=== PATIENT | male | born 1970 | race Caucasian/White ===

== ENCOUNTER → 2016-08-21 | Outpatient (CLI) | payer BC ==
[~2016-08-21] MED LIST: ACET-1138 PO; ACET-1311 PO; CLB200 PO; DOCU100C31 PO; ONDA8TAB13 SL; ONDA8TAB6 PO; OXYC1TAB3 PO; OXYC20TA50 PO; OXYSR10 PO; PERFLUTREN LIPID MICROSPHERE (DEFINITY) IV ONE; RIVA1TAB4 PO; RXC5 PO; XRL10 PO
--- NOTE | 2016-08-21 17:11 | ECHOCARDIOGRAM REPORT ---
*NOTICE TO RECEIVING DEMOCRAT AGENCY This information is strictly Confidential and protected under [place] law. [place] law prohibits you from making any further disclosure of this information unless further disclosure is expressly permitted by the written consent of the person to whom it pertains or is authorized by law. A general authorization for the release of medical or other information is not sufficient for this purpose. Hospital accepts no responsibility if the information is made available to any other person, INCLUDING THE PATIENT. Interpretation Summary * Name: ROGERIO MCKEON Study Date: 08/21/2016 12:39 PM BP: 165/79 mmHg * Patient Location: [facility] HR: 80 * : 1970 (M/d/yyyy) Gender: Male Height: 76 in * Age: 46 yrs Ethnicity: [place] Weight: 322 lb * Ordering Physician: Tristan Isidro * Referring Physician: Tristan Isidro * Performed By: Maty Swartz RDCS * * Reason For Study: MURMURS * BSA: 2.7 m2 * -- Conclusions -- * 1. Normal LV size. Mild concentric LVH. * 2. Normal LV systolic function. LVEF 55-60%. No regional wall motion abnormalities. * 3. Normal RV size and function. * 4. No significant valvular pathology. * 5. Grade II diastolic dysfunction. * 6. No prior studies for comparison. Procedure Details * A contrast injection of Definity was performed to improve assessment of LV function. * Contrast was injected into an intravenous site in the right arm. * One vial of Definity ultrasound contrast was diluted in normal saline to a total volume of 10 ml. A total of '2' ml of solution was administered during imaging. * Lot # [id number] of Definity utilized for procedure. * Expiration date 1 JUN 24. * The attending nurse who injected the contrast agent was PHANI FERNANDES RN. Left Ventricle * The left ventricle is grossly normal size. * There is mild concentric left ventricular hypertrophy. * Ejection Fraction = 55-60%. * No regional wall motion abnormalities noted. Right Ventricle * The right ventricle is grossly normal size. * The right ventricular systolic function is normal as assessed by tricuspid annular plane systolic excursion (TAPSE) (normal >1.5 cm). Atria * The left atrium is mildly dilated. * Right atrial size is normal. * No ASD detected; PFO is not assessed. Mitral Valve * The mitral valve is grossly normal. * There is no mitral valve stenosis. * Significant mitral regurgitation is absent. Tricuspid Valve * The tricuspid valve is not well visualized, but is grossly normal. * There is no tricuspid stenosis. * Significant tricuspid regurgitation is absent. Aortic Valve * The aortic valve opens well. * The aortic valve is trileaflet. * No hemodynamically significant valvular aortic stenosis. * There is no significant aortic regurgitation. Pulmonic Valve * The pulmonary valve is not well seen, but the Doppler examination is normal without significant regurgitation or stenosis. * There is mild valvular pulmonic stenosis. * There is no significant pulmonary regurgitation. Great Vessels * The aortic root and proximal ascending aorta are normal sized. * No Doppler or imaging evidence of an aortic coarctation. Pericardium/Pleural * There is no pericardial effusion. Left Ventricular Diastolic Function * Diastolic dysfunction, Grade II (pseudonormalization pattern). MMode 2D Measurements and Calculations IVSd 1.3 cm IVSs 1.7 cm LVIDd 4.6 cm LVIDs 3.2 cm LVPWd 1.6 cm LVPWs 2.1 cm IVS/LVPW 0.79 FS 31.2 % EDV(Teich) 98.9 ml ESV(Teich) 40.5 ml EF(Teich) 59.0 % EDV(cubed) 99.3 ml ESV(cubed) 32.3 ml EF(cubed) 67.5 % % IVS thick 34.0 % % LVPW thick 31.6 % LV mass(C)d 270.9 grams LV mass(C)dI 99.9 grams/m\S\2 LV mass(C)s 260.3 grams LV mass(C)sI 96.0 grams/m\S\2 SV(Teich) 58.4 ml SI(Teich) 21.5 ml/m\S\2 SV(cubed) 67.0 ml SI(cubed) 24.7 ml/m\S\2 LVAd ap4 49.3 cm\S\2 LVLd ap4 9.9 cm EDV(MOD-sp4) 200.8 ml EDV(sp4-el) 208.7 ml LVAs ap4 29.5 cm\S\2 LVLs ap4 8.0 cm ESV(MOD-sp4) 91.1 ml ESV(sp4-el) 92.2 ml EF(MOD-sp4) 54.7 % EF(sp4-el) 55.8 % LVAd ap2 39.3 cm\S\2 LVLd ap2 9.4 cm EDV(MOD-sp2) 138.6 ml EDV(sp2-el) 138.5 ml LVAs ap2 22.2 cm\S\2 LVLs ap2 7.2 cm ESV(MOD-sp2) 57.3 ml ESV(sp2-el) 58.1 ml EF(MOD-sp2) 58.6 % EF(sp2-el) 58.1 % LVLd %diff -4.47 % EDV(MOD-bp) 167.5 ml LVLs %diff -11.50 % ESV(MOD-bp) 76.0 ml EF(MOD-bp) 54.7 % SV(MOD-sp4) 109.8 ml SI(MOD-sp4) 40.5 ml/m\S\2 SV(MOD-sp2) 81.2 ml SI(MOD-sp2) 29.9 ml/m\S\2 SV(MOD-bp) 91.6 ml SI(MOD-bp) 33.8 ml/m\S\2 SV(sp4-el) 116.5 ml SI(sp4-el) 42.9 ml/m\S\2 SV(sp2-el) 80.4 ml SI(sp2-el) 29.6 ml/m\S\2 Doppler Measurements and Calculations MV E max juan jose 92.4 cm/sec MV A max juan jose 79.8 cm/sec MV E/A 1.2 MV dec time 0.25 sec Ao V2 max 142.3 cm/sec Ao max PG 8.1 mmHg Ao max PG (full) 0.95 mmHg LV V1 max PG 7.2 mmHg LV V1 max 133.7 cm/sec
== END | disposition home or self-care (01) ==
LOC: C.CPL 12:25
PROVIDERS: ATTEND Internal Medicine
DX: R01.1 Cardiac murmur, unspecified (principal)

== ENCOUNTER 2016-09-06 11:15 | Inpatient (IN) | payer BC ==
[2016-08-11 15:28] VITALS: BMI 39.0
--- NOTE | 2016-08-11 15:57 | PAT Medication Instructions ---
Service Date Aug 11, 2016. Current Home Medication List No Active Prescriptions or Reported Meds Medication Instructions For Your Scheduled Surgery No Active Prescriptions or Reported Meds- Patient advised to contact PAT if any medications started prior to surgery. If you have any questions please call us at [phone] (Ryann Alvarado PA-C) or [phone] or [phone]
[2016-08-11 16:17] LABS: MANUAL MICROSCOPIC REQUIRED? NO; REVIEW REQ? NO; URINE APPEARANCE CLEAR (CLEAR); URINE BILIRUBIN NEG (NEG); URINE COLOR YELLOW; URINE NITRITE NEG (NEG); URINE SPECIFIC GRAVITY 1.029 (1.000-1.030); UROBILINOGEN NEG (NEG); ZZUR CULT IF INDIC CLEAN CATCH NO
[2016-08-11 16:18] LABS: BASO % 0.4 %; BASO ABS # 0.03 K/uL (0-0.2); COMPLETE YES; EOS % 1.6 %; HEMATOCRIT 42.2 % (42-52); IG% 0.2 %; LYMPH % 28.5 %; MEAN CELL VOLUME 86.5 fL (80-100); MEAN CORPUSCULAR HEMOGLOBIN 29.9 pg (25-34); MEAN CORPUSCULAR HGB CONC 34.6 g/dl (32-36); MEAN PLATELET VOLUME 10.3 fL (7.4-10.4); MONO % 9.3 %; PLATELET COUNT 238 K/uL (130-400); RED BLOOD COUNT 4.88 M/uL (4.7-6.1); WHITE BLOOD COUNT 8.08 K/uL (4.8-10.8)
[2016-08-11 16:24] LABS: BUN/CREATININE RATIO 16.9 (10-20); CALCIUM 8.5 mg/dl (8.5-10.1); CREATININE 1.4 mg/dl (0.60-1.40); POTASSIUM 3.8 mmol/L (3.5-5.1)
[2016-08-11 16:26] LABS: INR 0.9 (0.9-1.1); PROTHROMBIN TIME (PATIENT) 9.9 SECONDS (9.0-12.0)
--- NOTE | 2016-08-11 16:29 | DIAGNOSTIC IMAGING REPORT ---
CHEST 2 VIEWS ROUTINE CLINICAL HISTORY: Preoperative chest COMPARISON STUDY: No previous studies for comparison. FINDINGS: The cardiac and mediastinal contours are normal. There is no evidence of focal pulmonary consolidation. There is no evidence of failure. No pleural effusions are visualized.[ IMPRESSION: No active disease in the chest. Electronically signed by: Alex Stevens M.D. 08/11/2016 4:26 PM Dictated Date/Time: 08/11/2016 4:26 PM
[2016-08-12 06:09] LABS: ESTIMATED AVERAGE GLUCOSE 111 mg/dl; HA1C FLAG Normal (Normal)
--- NOTE | 2016-09-05 16:45 | HISTORY & PHYSICAL EXAMINATION ---
DATE OF ADMISSION: 09/06/2016 CHIEF COMPLAINT: Chronic right knee pain. HISTORY OF PRESENT ILLNESS: This is a 46-year-old male patient of Dr. Lopez'thong complaining of chronic right knee pain, longstanding, now progressively getting worse. The patient has been diagnosed with end-stage osteoarthritis per clinical and radiographic exams. He has failed intraarticular injections and wishes to proceed with right total knee arthroplasty with removal of hardware. PAST MEDICAL HISTORY: Osteoarthritis and acid reflux, otherwise patient is a healthy 46-year-old male. SOCIAL HISTORY: Nonsmoker, occasional drinker. PAST SURGICAL HISTORY: Hernia repair, left shoulder surgery and right knee ACL reconstruction. MEDICATIONS: None. ALLERGIES: None. FAMILY HISTORY: Noncontributory. REVIEW OF SYSTEMS: The patient complains of chronic right knee pain, otherwise denies any shortness of breath, chest pain, nausea, vomiting or any other complaints. PHYSICAL EXAMINATION: EXTREMITIES: Right knee reveals 0-115 degrees of limited range of motion. He has a positive effusion. He has a neutral alignment. He has 5/5 strength. NEUROLOGIC: Neurovascularly, he is intact in his right lower extremity. DIAGNOSES: Right knee chronic pain with osteoarthritis and acid reflux. Otherwise, a healthy 46-year-old male. PLAN: The patient was advised of his diagnosis. Indications, risks, benefits, and postop course have all been reviewed. The patient wishes to proceed with right total knee arthroplasty with removal of hardware. Necessary consent forms, preoperative testing and clearances will be obtained.
[~2016-09-06] VITALS: Ht 193 cm; Wt 146.3 kg
[~2016-09-06 11:15] MED LIST changes: -ACET-1138 PO; -ACET-1311 PO; +ACETAMINOPHEN 500 MG TAB PO SCH; +ATROPINE SULFATE 0.1 MG/ML 5ML SYR IV PRN; +BACITRACIN 50000 UNIT VIAL ONE; +BUPIVACAINE 0.5 % 5 MG/1 ML PF 10ML VIAL ONE; +CEFAZOLIN 3000 MG/65 ML D5W 65 ML IV SCH; -CLB200 PO; +CeleBREX 200 MG CAP PO SCH; +DEXAMETHASONE 4 MG TAB PO SCH; -DOCU100C31 PO; +EpHEDrine SULFATE INJ 50 MG/ML AMP IV PRN; +FAMOTIDINE 20 MG TAB PO SCH; +GABAPENTIN 300 MG CAP PO SCH; +HYDROmorphone INJ 2 MG/ML SYR/VIAL IV PRN; +LACTATED RINGER'S 1000ML 1,000 ML IV SCH; +METOCLOPRAMIDE HCL 10 MG TAB PO SCH; -ONDA8TAB13 SL; -ONDA8TAB6 PO; +ONDANSETRON INJ 2 MG/ML 2 ML VIAL IV PRN; +ORTHO JOINT ANESTHETIC ONE; -OXYC1TAB3 PO; -OXYC20TA50 PO; -OXYSR10 PO; -PERFLUTREN LIPID MICROSPHERE (DEFINITY) IV ONE; +PHENYLEPHRINE 100MCG/ML 5ML SYR IV PRN; -RIVA1TAB4 PO; +ROPIVACAINE 0.5% 5 MG/ML 30 ML VIAL ONE; +ROPIVACAINE 5MG/ML 30 ML 150 MG, BUPIVACAINE/EPINEPHR 0.5% MPF 30 ML, KETOROLAC TROMETH... INFIL SCH; -RXC5 PO; -XRL10 PO
[2016-09-06] MEDS ORDERED: MIDAZOLAM HCL 1 MG/ML 2ML VIAL ONE ×3 (11:26→14:08)
[2016-09-06] MEDS ORDERED: FENTANYL CITRATE INJ 50 MCG/1 ML 2 ML VIAL ONE ×2 (11:27→14:08)
[2016-09-06 11:32] VITALS: BP 137/91; PULSE 70; TEMP 36.4; O2SAT 97; Ht 193 cm; Wt 146.3 kg
--- NOTE | 2016-09-06 12:08 | History & Physical Bridge Note ---
H&P Re-Evaluation Bridge Note: I have examined the patient, reviewed the History & Physical and in the interval since the performance of the History & Physical I have noted the following changes of clinical significance: No changes noted
[2016-09-06] MEDS ORDERED: POVIDONE-IODINE OP SOLN 30 ML BTL ONE (12:12)
[2016-09-06] MEDS: TRANEXAMIC ACID INJ 1,000 MG in SODIUM CHLORIDE 0.9% 100ML 100 ML IV SCH (12:14)
[2016-09-06] MEDS ORDERED: LIDOCAINE HCL 2% 2 ML VIAL (20MG/ML) ONE (12:19)
[2016-09-06] MEDS ORDERED: KETAMINE HCL INJ 50 MG/ML 10 ML VIAL ONE (12:56)
[2016-09-06] MEDS ORDERED: ONDANSETRON INJ 2 MG/ML 2 ML VIAL ONE (16:01)
[2016-09-06] MEDS ORDERED: DEXAMETHASONE SOD INJ 4 MG/ML VIAL ONE (16:01)
[2016-09-06] MEDS ORDERED: PROPOFOL IV EMULSION 10 MG/ML 20 ML VIAL IV ONE ×2 (16:01)
[2016-09-06] MEDS ORDERED: TRAMADOL HCL 50 MG TAB PO PRN (16:15)
[2016-09-06] MEDS ORDERED: BISACODYL 10 MG SUPP PR PRN (16:15)
[2016-09-06] MEDS ORDERED: ONDANSETRON INJ 2 MG/ML 2 ML VIAL IV PRN (16:15)
[2016-09-06] MEDS ORDERED: MAGNESIUM HYDROXIDE SUSP 30 ML UDC PO PRN (16:15)
[2016-09-06] MEDS ORDERED: MoRPHine SULFATE 2 MG/ML CARP IV PRN (16:15)
[2016-09-06] MEDS ORDERED: SOD PHOSPHATE/SOD BIPHOSPHATE ENEMA 132 ML BTL PR PRN (16:15)
--- NOTE | 2016-09-06 16:28 | DIAGNOSTIC IMAGING REPORT ---
TWO VIEWS RIGHT KNEE CLINICAL HISTORY: Postoperative examination. FINDINGS: AP and crosstable lateral portable views of the right knee are obtained. A right knee arthroplasty is in near anatomic alignment. There has been undersurface remodeling of the patella. No acute fracture is seen. There are expected postoperative changes around the knee including skin clips, a surgical drain, soft tissue edema, and subcutaneous gas. IMPRESSION: Expected postoperative changes status post right knee arthroplasty. No acute fracture is seen. Electronically signed by: Suraj Ward M.D. 09/06/2016 4:26 PM Dictated Date/Time: 09/06/2016 4:26 PM
--- NOTE | 2016-09-06 16:35 | [facility] Operative Report ---
Operative Report Operative Date September 06, 2016. Pre-Operative Diagnosis Right chronic knee pain with osteoarthritis,s/p acl recon retained hardware. Post-Operative Diagnosis end stage djd oa ,failed acl graft ,postop scar tissue. Procedure(s) Performed right TKA and hardware removal Surgeon Dr. Lopez Script Coordinator Surgeon(s) IKE Orozco Estimated Blood Loss 30ml Findings tricompartmental djd , chronic scar ,s/p partial medial meniscectomy and failed acl graft Specimens A) Removed Hardware- right knee B) Right knee- bone and tissue Drains 2 hemovac Anesthesia spinal and general and adductor block and orthomix Complication(s) None Disposition Recovery Room / PACU Indications failed conservative rx with end stage djd and progressive pain and disability I attest to the content of the Intraoperative Record and any orders documented therein. Any exceptions are noted below.
[2016-09-06] MEDS ORDERED: HYDROmorphone INJ 1 MG/ML SYR ONE ×2 (16:36→16:50)
--- NOTE | 2016-09-06 16:59 | Anesthesiology Progress Note ---
Anesthesia Post Op Note Date & Time September 06, 2016 at 16:58 Vital Signs Pain Intensity: 4.0 Vital Signs Past 12 Hours Date Time Temp Pulse Resp B/P Pulse Ox O2 Delivery O2 Flow Rate FiO2 09/06/16 16:50 82 14 130/87 95 Nasal Cannula 2 09/06/16 16:40 82 16 135/88 96 Nasal Cannula 2 09/06/16 16:30 89 16 143/98 98 Mask 10 09/06/16 16:20 92 16 137/120 98 Mask 10 09/06/16 16:10 36 99 16 156/100 100 Mask 10 09/06/16 11:32 36.4 70 20 137/91 97 Room Air Notes Mental Status: alert / awake / arousable, participated in evaluation Pt Amnestic to Procedure: Yes Nausea / Vomiting: adequately controlled Pain: adequately controlled Airway Patency, RR, SpO2: stable & adequate BP & HR: stable & adequate Hydration State: stable & adequate Neuraxial Anesthesia: was administered, sensory block is resolving Anesthetic Complications: no major complications apparent Pt doing well, just having some lower back pain which he says is like his typical low back pain. His spinal site appears benign and he has no radicular symptoms. We did have to convert to GA during the case as the spinal lost effectiveness after only about an hour and a half.
[2016-09-06 17:20] VITALS: BP 131/84; PULSE 86; TEMP 36.4; O2SAT 97
[2016-09-06 17:46] VITALS: BP 121/74; PULSE 80; TEMP 36; O2SAT 96
[2016-09-06] MEDS: D5W AND 1/2NSS + 20MEQ KCL 1,000 ML IV SCH (18:38)
[2016-09-06] MEDS: OXYCODONE HCL IR 5 MG TAB (IMMEDIATE RELEASE) PO PRN (18:44)
[2016-09-06 19:20] VITALS: BP 122/76; PULSE 72; TEMP 36.7; O2SAT 97
[2016-09-06] MEDS: CEFAZOLIN IV 2,000 MG in DEXTROSE 5% 50ML 50 ML IV SCH (19:50)
[2016-09-06 20:18] VITALS: BP 132/72; PULSE 78; TEMP 36.7; O2SAT 96
--- NOTE | 2016-09-06 20:31 | Progress Note ---
Subjective Date of Service: September 06, 2016. Subjective Pt evaluation today including: conversation w/ patient, conversation w/ family , physical exam, chart review, lab review asked to see for med management. notes that his medical problems are the OA in knee (which has now been operated on) and GERD (which really only occurs when he eats red sauce) pain reasonable control right now - wanted to make sure he has something for pain before he goes to bed - reviewed chart and mutliple meds would be available Review of Systems ros otherwise negative except for as above Objective Vital Signs Date Time Temp Pulse Resp B/P Pulse Ox O2 Delivery O2 Flow Rate FiO2 09/06/16 20:18 36.7 78 17 132/72 96 Nasal Cannula 2.0 09/06/16 19:20 36.7 72 17 122/76 97 Nasal Cannula 2.0 09/06/16 17:46 36.0 80 17 121/74 96 Nasal Cannula 2.0 09/06/16 17:20 36.4 86 18 131/84 97 Nasal Cannula 2.0 09/06/16 17:00 36 82 16 130/92 92 Nasal Cannula 2 09/06/16 16:50 82 14 130/87 95 Nasal Cannula 2 09/06/16 16:40 82 16 135/88 96 Nasal Cannula 2 09/06/16 16:30 89 16 143/98 98 Mask 10 09/06/16 16:20 92 16 137/120 98 Mask 10 09/06/16 16:10 36 99 16 156/100 100 Mask 10 09/06/16 11:32 36.4 70 20 137/91 97 Room Air Physical Exam General Appearance: no apparent distress Eyes: EOMI ENT: hearing grossly normal Respiratory/Chest: no respiratory distress, no accessory muscle use 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 GERD -avoid red sauce elevated creatinine -appears around baseline - doubt any CKD - appears to have a lot of muscle mass encompassing a good deal of his weight - probably "normal variant" DVT proph -per ortho will be available as needed, but given overall medical stability, will sign off for now, thanks
[2016-09-06] MEDS: CeleBREX 200 MG CAP PO SCH (21:08)
[2016-09-06] MEDS: DOCUSATE SODIUM 100 MG CAP PO SCH (21:08)
[2016-09-06] MEDS: OXYCODONE HCL 10 MG TABCR (OXYCONTIN) PO SCH (21:08)
[2016-09-06] MEDS: MoRPHine SULFATE 2 MG/ML CARP IV PRN (22:42)
[2016-09-06] MEDS: ACETAMINOPHEN 500 MG TAB PO SCH (23:16)
[2016-09-06] MEDS: RIVAROXABAN 10 MG TAB PO SCH (23:16)
[2016-09-06 23:53] VITALS: BP 119/68; PULSE 82; TEMP 36.5; O2SAT 95
[2016-09-07] VITALS (7 sets, daily range): BP systolic 114–144; BP diastolic 68–91; PULSE 67–88; TEMP 36.5–37.1; O2SAT 95–96
[2016-09-07] MEDS: OXYCODONE HCL IR 5 MG TAB (IMMEDIATE RELEASE) PO PRN ×2 (00:23→12:16)
[2016-09-07] MEDS: ZOLPIDEM TARTRATE 5 MG TAB PO PRN ×2 (00:23→02:40)
[2016-09-07] MEDS: CEFAZOLIN IV 2,000 MG in DEXTROSE 5% 50ML 50 ML IV SCH (02:42)
[2016-09-07] MEDS: D5W AND 1/2NSS + 20MEQ KCL 1,000 ML IV SCH ×2 (02:42→13:34)
--- NOTE | 2016-09-07 03:29 | OPERATIVE REPORT ---
DATE OF OPERATION: 09/06/2016 INDICATIONS FOR PROCEDURE: A 46-year-old male with history of a right knee ACL reconstruction in the past. He has developed osteoarthritis. He has had extensive conservative management. He has tricompartmental DJD, [id number] in the medial compartment. The patient now presents for a total knee replacement at this time and hardware removal. PREOPERATIVE DIAGNOSES: Right knee end-stage osteoarthritis, history of previous anterior cruciate ligament reconstruction with bone patellar tendon bone autograft with retained hardware. POSTOPERATIVE DIAGNOSES: Same; chronic scar tissue status post anterior cruciate ligament reconstruction, findings partial medial meniscectomy, retained interference screw hardware in the tibia and femur. Failed anterior cruciate ligament graft and tricompartmental disease. PROCEDURE: Right total knee arthroplasty including removal of deep hardware from the femur and tibia. SURGEON: Dr. Lopez. MANUFACTURING PROCESS ENGINEER: IKE Orozco. ANESTHESIA: Spinal and adductor nerve block followed by general and ortho mix. OPERATIVE PROCEDURE: The patient was taken to the operating room after spinal and adductor nerve block anesthesia. He was placed supine on the operating room table. The patient is a very large male, BMI of 39 by the large muscular leg. Pneumatic tourniquet was placed about his upper thigh. His right leg was examined under anesthesia. He had a very stiff knee of 0 to about 120 degrees range of motion. No clear endpoint with Ambrocio exam but no pivot shift. Right lower extremity was prepped and draped with ChloraPrep in the usual sterile fashion. His leg was elevated and exsanguinated with Esmarch bandage. Pneumatic tourniquet was raised to 350 mmHg because of the large size of his thigh. I used the Adams \T\ Nephew Journey 2.0 total knee replacement system. I had to use conventional alignment rods and external tibial cutting guide because of the hardware and inability to get an MRI. The knee was exposed by using his pretibial incision from his ACL reconstruction, extending that up into a longitudinal incision across patella and up about 3 cm above the knee joint. The skin was incised sharply. We encountered scarred prepatellar bursa tissue which was incised down to the fascia and some of the prepatellar bursa was resected and subcutaneous flaps were elevated. It was noted that the patellar tendon had healed centrally where the graft was obtained, but there was indentation and bit of a divot in the tendon area where the graft was harvested. The incision was made through the medial retinaculum and extended up in the mid third of the quadriceps tendon and extended down to the medial tibial tubercle. It was noted that the patellar tendon was very thickened and scarred. It was difficult to jermaine the patella. It was difficult to get exposure of the knee due to the scar tissue. First, I did some of the capsular release of the medial capsule around the anterior medial part of the knee. I identified the medial meniscus to have had the previous partial meniscectomy with decreased size of meniscus. The meniscal remnants were resected medially and then anterior to the mid portion initially. We inspected the graft and the graft was completely ruptured and there was just some scar tissue from the graft there. There were some bony excrescences around the tibial tubercle. These were removed and the old graft material was resected. Some of the notch osteophytes were removed and the PCL was released at this time. The anterior portion of the lateral meniscus was removed and then we had to reflect some of the scarred inferior patellar fat pad off the pretibial area leaving the patellar tendon intact. We then went ahead and removed the fat pad over the anterior femur for placement of the component in that area and then removed some scarred fat and synovium around the patella articular surface and then we removed the scarred infrapatellar fat pad. This improved some of the mobility of the patella but did not improve it significantly and enough to get enough exposure of the femur without taking any proximal releases which I did not want to do so at this point, we addressed the patella first. I did a subperiosteal peel lateral release around the patella and then measured the patella width which was very thick patella over 30 mm thick at about 30-32 mm. We reproduced the width using a freehand cut technique and a 38 patellar component. The drill holes were made for the patella and all of the osteophytes removed in the lateral facet and the patella was bevelled off to prevent any impingement. At this time, we were able to get retractors to expose the femur better. At this point, an intramedullary drill hole was made into the canal, and we were able to bypass the interference screw without difficulty in this portion of the procedure. After the guide bhaskar was placed, we used the distal femoral cutting guide to align the distal femoral cut at a 5 degree valgus cut. Because patient had a flexion contracture about 10 degrees, I chose to add +2 resection of the distal femur to the standard cut. Then the cut was made with the oscillating saw. Then, the sizing guide and alignment guide was placed on the end of the femur and was pinned in position and we externally rotated the femoral component just over 3 degrees to line up with the inner condylar axis and also the trochlear groove. When the lateral most was satisfactory, it was pinned in position and then the femur was sized for an 8 component. We used the 5-in-1 cutting block for the 8th femoral component. The patient had very dense hard bone. I cool the saw with saline during this part of the procedure. The anterior, posterior and chamfer cuts were made. Then, the cutting block was removed and the cut fragments were removed and then the tibia was subluxed and external tibial cutting guide was used to make a perpendicular cut to the long axis of the tibia. I made this below the most efficient medial side. We also placed some posterior slope on to match the patient's posterior slope appropriately. We used the oscillating saw. We did contact the interference screw so we could worked around that screw, so we could get our complete cut with the oscillating saw. I removed the cutting device guide and then inspected the tip of the screw and this was removed by using an artist chisel to free up the bone around the screw which was densely adherent to the bone which had grown completely around the screw solidly. I removed some of the graft material near the tunnel and then we were able to break the screw lose and remove it in its entirety. I curetted out the remainder of the graft in the proximal tibia. I removed all the osteophytes with a rongeur. Then we sized the tibia for a size 8 tibial component. Did released the capsule medially and posteromedially to balance the ligaments. We used the lamina egg packer and we were able to remove any meniscus remnants remaining in the PCL completely and remainder of the ACL graft. He had a very large loose body, which was in the posteromedial compartment and this was at least 4 cm x 2 cm. I removed osteophytes off the condyles posteriorly bilaterally and all notch osteophytes. The lamina egg packer revealed that we had balanced extension and flexion gaps at this time. Then the tibia was exposed again. We externally rotated the trial 8 tibial component to line up with the tibial tubercle, pinned it in position, and first we drilled the hole for the punch because of the sclerotic bone tunnel that passed through that area and then we went ahead and used the punch for the pins of the tibial component. Then I went ahead and placed on the femoral trial, insert it completely and centered it and then when I was using the notch cutting devices, we made contact with the screw and we could not bottom out the reamer, so we had to ream partially first and then go ahead and remove the screw, so we went ahead and removed the notch cutting device from the notch and then went ahead and used an artist chisel around that screw. We tried to use a screwdriver when we started to strip the threads so we just went ahead and loosen it up on an artist chisel and then removed it with needle nose pliers. This was irrigated and then we used some of the bone cuts up in the femur to bone graft the area where the screw was and the alignment bhaskar in the femur. Then we replaced it and did a trial reduction and a 9 poly insert gave balanced ligaments through full range of motion and the patella still had slight lateral tracking and then we released the lateral retinaculum leaving the synovium intact and the patella tracked centrally and the knee had full motion and stability in flexion and extension. At this point, the trials were removed and the knee was copiously irrigated with antibiotic solution with bacitracin. The tourniquet was at 2 hours at this point, and I felt it was best to cement the components and at this point rather than leaving the knee bleed more with leaving the tourniquet down with all the raw bony surfaces so we went ahead and put a tourniquet up another 10 minutes while the components were cemented. The final components were then cemented with the Simplex G cement. The components were the Adams \T\ Nephew Journey 2.0 posterior stabilized 8th femoral component, the 8th primary tibial base plate, the 9 mm posterior stabilized Iplex poly insert and the 38 patella. While the cement cured, the Betadine soak was used per protocol and then when the cement hardened, we let the tourniquet down, irrigated out the knee copiously and obtained meticulous hemostasis with electrocautery and there was no whole lot of bleeding. We did have TXA for closing and preop which assisted in decreased bleeding. At this time, the 2 drains were brought out laterally and then the quadriceps tendon and medial retinaculum were closed with interrupted [id number] #1 Vicryl sutures. The knee was taken through a full range of motion and repair was secure. The subcutaneous tissue was closed with interrupted 2-0 Vicryl, skin closed with roya. Sterile dressings were applied including a Silverlon dressing. The patient had about 30 mL of blood loss. He tolerated the procedure well. IKE Orozco was my first and he functioned as my first beater for the entire procedure. He assisted in patient positioning, prepping, draping, leg positioning, soft tissue retraction, instrument management during the procedure and assisted in the subcutaneous skin closure and will participate in postoperative care of the patient. I attest to the content of the Intraoperative Record and any orders documented therein. Any exceptions are noted below. FEDE
[2016-09-07] MEDS: ACETAMINOPHEN 500 MG TAB PO SCH ×3 (05:47→21:18)
[2016-09-07 06:35] LABS: HEMATOCRIT 37.7 % (42-52); MEAN CELL VOLUME 87.5 fL (80-100); MEAN CORPUSCULAR HEMOGLOBIN 29.5 pg (25-34); MEAN CORPUSCULAR HGB CONC 33.7 g/dl (32-36); MEAN PLATELET VOLUME 10.6 fL (7.4-10.4); PLATELET COUNT 212 K/uL (130-400); RED BLOOD COUNT 4.31 M/uL (4.7-6.1); WHITE BLOOD COUNT 17.03 K/uL (4.8-10.8)
[2016-09-07] MEDS: TRANEXAMIC ACID INJ 1,000 MG in SODIUM CHLORIDE 0.9% 100ML 100 ML IV SCH (06:39)
[2016-09-07 07:09] LABS: BUN/CREATININE RATIO 10.4 (10-20); CALCIUM 8.4 mg/dl (8.5-10.1); CREATININE 1.6 mg/dl (0.60-1.40); POTASSIUM 4.7 mmol/L (3.5-5.1)
--- NOTE | 2016-09-07 08:12 | Orthopedic Progress Note ---
Orthopedic Progress Note Date of Service September 07, 2016. Subjective Post OP Day: 1 Reports: feeling well, pain controlled w PO medications, Denies: SOB, calf pain , chest pain, complaints, light headedness, nausea / vomiting Objective calves soft nontender, N/V intact, capillary refill less than 2 sec., dressing C /D/I, A&O x3, toes mobile Date Time Temp Pulse Resp B/P Pulse Ox O2 Delivery O2 Flow Rate FiO2 09/07/16 07:04 36.6 77 16 117/78 95 Room Air 09/07/16 02:50 36.5 74 18 121/73 95 Room Air 09/07/16 00:00 Room Air 09/06/16 23:53 36.5 82 20 119/68 95 Room Air 09/06/16 20:18 36.7 78 17 132/72 96 Nasal Cannula 2.0 09/06/16 19:20 36.7 72 17 122/76 97 Nasal Cannula 2.0 09/06/16 17:46 36.0 80 17 121/74 96 Nasal Cannula 2.0 09/06/16 17:20 97 Nasal Cannula 2.0 09/06/16 17:20 36.4 86 18 131/84 97 Nasal Cannula 2.0 09/06/16 17:20 97 Nasal Cannula 2.0 09/06/16 17:00 36 82 16 130/92 92 Nasal Cannula 2 09/06/16 16:50 82 14 130/87 95 Nasal Cannula 2 09/06/16 16:40 82 16 135/88 96 Nasal Cannula 2 09/06/16 16:30 89 16 143/98 98 Mask 10 09/06/16 16:20 92 16 137/120 98 Mask 10 09/06/16 16:10 36 99 16 156/100 100 Mask 10 09/06/16 11:32 36.4 70 20 137/91 97 Room Air Laboratory Results 24 Hours: Test 09/07/16 06:05 Hematocrit 37.7 % Hemoglobin 12.7 g/dL Assessment & Plan Assessment: POD #1, Right TKA Plan: PT/ OT DVT proph- Xarelto D/C planning- Home w OPPT Appreciate medicine input Inhouse Planning Pain Management: Celebrex, Oxycontin, Morphine, PO Tylenol, Oxy IR DVT Prophylaxis: TEDs, SCDs, Xarelto Discharge Planning Discharge Planning: home with oppt Pain Management: Oxycontin, Morphine, PO Tylenol, Oxy IR DVT Prophylaxis: TEDs, SCDs, Xarelto Therapy: Physical Therapy, Occupational Therapy
--- NOTE | 2016-09-07 08:13 | Discharge Instructions ---
Discharge Instructions Date of Service September 07, 2016. Admission Reason for Admission: Right Knee Dengerative Joint Disease Discharge Discharge Diagnosis / Problem: Right TKA Discharge Goals Goal(s): Improve function Activity Recommendations Activity Limitations: as noted below . Instructions / Follow-Up Instructions / Follow-Up ACTIVITY RECOMMENDATIONS: SELF CARE INSTRUCTIONS AFTER TOTAL KNEE REPLACEMENT A. You may need to continue a physical therapy program after discharge from the hospital. There are several options available to you. Your doctor will assist you in selecting the best one for you. 1. An out-patient facility 2 to 3 times a week for therapy or home therapy. 2. Continue working on all exercises taught to you in the hospital. Your goals should be to increase bending of your knee to 90 degrees and beyond and to fully straighten your knee. B. You may progress at your own pace from walking with a walker or crutches to a cane; then to no assistive devices. C. Make walking a part of your daily routine. Be up as much as comfortable with rest periods throughout the day. Rest with leg elevation is very important. Use the ice wrap frequently for the first 3-4 weeks. D. There are no restrictions on activities. 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 E. Wear the long elastic stockings (QUINN hose) 20 hours a day for 2 weeks after surgery. They can be removed several times a day for laundering and for a bath. F. You may shower, no tub baths until cleared by your doctor. SPECIAL CARE INSTRUCTIONS: VERY IMPORTANT TO READ AND REVIEW A. There are a few signs you need to watch for after you are home. Call [facility] if you notice any of the followin. Increased severe knee pain. Some pain is expected especially when you exercise. 2. Increased swelling in your leg or knee; pain or swelling of the calf muscle in either lower leg. 3. Any fluid drainage from the incision. 4. Shortness of breath or chest pain. B. Please call [facility] at if you have any concerns or questions about your operation or recovery. The doctor or his nurse will return your call promptly. C. You must take antibiotics before dental work, bladder, bowel or other surgery. Your doctor will provide you with a permanent care to carry describing this precaution. IMPORTANT: * HIGH RISK PATIENTS MAY BE PRESCRIBED A STRONGER BLOOD THINNER. THIS WILL BE PROVIDED AT DISCHARGE -XARELTO. * CALL IF INCREASED PAIN, REDNESS, DRAINAGE OR FEVER GREATER THAT 101. * WEAR QUINN HOSE 20 HOURS PER DAY FOR 2 WEEKS. * YOU MAY HAVE A LARGE BAND-AID LIKE DRESSING (SILVERON). THIS WILL REMAIN ON YOUR INCISION FOR 7 DAYS, THEN CAN BE REMOVED. IF INCISION IS LEAKING THROUGH DRESSING, CALL THE OFFICE . FOLLOW UP VISIT: If appointment is not already scheduled: Please call [facility] to make a follow-up appointment for 2 weeks after your surgery at . Current Hospital Diet Patient's current hospital diet: Regular Diet Discharge Diet Recommended Diet: Regular Diet Procedures Procedures Performed: Right Knee Hardware Removal (ACL Screws); Right Total Knee Arthroplasty Pending Studies Studies pending at discharge: no Laboratory Results Hemoglobin A1c Test 08/11/16 15:54 Range/Units Estimated Average Glucose 111 mg/dl Hemoglobin A1c 5.5 4.5-5.6 % Medical Emergencies . Who to Call and When: Medical Emergencies: If at any time you feel your situation is an emergency, please call 911 immediately. . Non-Emergent Contact Non-Emergency issues call your: Primary Care Provider . "Provider Documentation" section prepared by Bhavin Vallecillo. . VTE Core Measure Inpt VTE Proph given/why not?: Other Anticoagulation (Xarelto), TLa Nova, SCD's [place] Drug Monitoring Program Search Results: patient reviewed within database, no issues identified
[2016-09-07] MEDS: MULTIVITAMIN TAB PO SCH (08:58)
[2016-09-07] MEDS: OXYCODONE HCL 10 MG TABCR (OXYCONTIN) PO SCH ×2 (08:58→21:18)
[2016-09-07] MEDS: PANTOprazole SOD 40 MG TAB PO SCH (08:58)
[2016-09-07] MEDS: DOCUSATE SODIUM 100 MG CAP PO SCH ×2 (08:59→21:17)
[2016-09-07] MEDS: CeleBREX 200 MG CAP PO SCH ×2 (08:59→21:18)
--- NOTE | 2016-09-07 10:42 | Anesthesiology Progress Note ---
Anesthesia Post Op Note Date & Time September 07, 2016 at 10:42 Vital Signs Vital Signs Past 12 Hours Date Time Temp Pulse Resp B/P Pulse Ox O2 Delivery O2 Flow Rate FiO2 09/07/16 10:23 88 95 09/07/16 09:16 Room Air 09/07/16 08:20 36.5 80 18 122/68 95 Room Air 09/07/16 07:45 Room Air 09/07/16 07:04 36.6 77 16 117/78 95 Room Air 09/07/16 02:50 36.5 74 18 121/73 95 Room Air 09/07/16 00:00 Room Air 09/06/16 23:53 36.5 82 20 119/68 95 Room Air Notes Mental Status: alert / awake / arousable, participated in evaluation Pt Amnestic to Procedure: Yes Nausea / Vomiting: adequately controlled Pain: adequately controlled Airway Patency, RR, SpO2: stable & adequate BP & HR: stable & adequate Hydration State: stable & adequate Anesthetic Complications: no major complications apparent
[2016-09-07] MEDS: MoRPHine SULFATE 4 MG/ML 1 ML CARP\\VIAL IV PRN ×2 (13:39→23:02)
[2016-09-07] MEDS: RIVAROXABAN 10 MG TAB PO SCH (21:18)
[2016-09-08] MEDS: ZOLPIDEM TARTRATE 5 MG TAB PO PRN (00:04)
[2016-09-08] MEDS: OXYCODONE HCL IR 5 MG TAB (IMMEDIATE RELEASE) PO PRN ×3 (00:04→13:51)
[2016-09-08] MEDS: MoRPHine SULFATE 2 MG/ML CARP IV PRN (03:24)
[2016-09-08] MEDS: ACETAMINOPHEN 500 MG TAB PO SCH ×2 (05:39→13:51)
[2016-09-08 06:58] VITALS: BP 138/77; PULSE 67; TEMP 36.3; O2SAT 97
--- NOTE | 2016-09-08 07:53 | Orthopedic Progress Note ---
Orthopedic Progress Note Date of Service September 08, 2016. Subjective Post OP Day: 2 Reports: feeling well, pain controlled w PO medications, Denies: SOB, calf pain , chest pain, complaints, light headedness, nausea / vomiting Objective calves soft nontender, N/V intact, capillary refill less than 2 sec., dressing C /D/I, A&O x3, toes mobile Silverlon in tact. Date Time Temp Pulse Resp B/P Pulse Ox O2 Delivery O2 Flow Rate FiO2 09/08/16 06:58 36.3 67 20 138/77 97 Room Air 09/08/16 00:00 Room Air 09/07/16 23:50 36.6 67 16 144/91 96 Room Air 09/07/16 16:32 36.6 74 17 125/74 95 Room Air 09/07/16 16:00 Room Air 09/07/16 11:24 37.1 82 17 114/72 96 Room Air 09/07/16 10:23 88 95 09/07/16 09:16 Room Air 09/07/16 08:20 36.5 80 18 122/68 95 Room Air Assessment & Plan Assessment: POD #2, Right TKA Plan: PT/ OT DVT proph- Xarelto D/C planning- Home w OPPT today Appreciate medicine input Inhouse Planning Pain Management: Celebrex, Oxycontin, Morphine, PO Tylenol, Oxy IR DVT Prophylaxis: TEDs, SCDs, Xarelto Discharge Planning Discharge Planning: home with oppt Pain Management: Oxycontin, Morphine, PO Tylenol, Oxy IR DVT Prophylaxis: TEDs, SCDs, Xarelto Therapy: Physical Therapy, Occupational Therapy
[2016-09-08] MEDS ORDERED: ACET-1138 PO (07:57)
[2016-09-08] MEDS ORDERED: OXYSR10 PO (07:57)
[2016-09-08] MEDS ORDERED: XRL10 PO (07:57)
[2016-09-08] MEDS ORDERED: ONDA8TAB6 PO (07:57)
[2016-09-08] MEDS ORDERED: RXC5 PO (07:57)
[2016-09-08] MEDS ORDERED: CLB200 PO (07:57)
[2016-09-08] MEDS: OXYCODONE HCL 10 MG TABCR (OXYCONTIN) PO SCH (08:48)
[2016-09-08] MEDS: MULTIVITAMIN TAB PO SCH (08:49)
[2016-09-08] MEDS: DOCUSATE SODIUM 100 MG CAP PO SCH (08:49)
[2016-09-08] MEDS: PANTOprazole SOD 40 MG TAB PO SCH (08:49)
[2016-09-08] MEDS: CeleBREX 200 MG CAP PO SCH (08:50)
[2016-09-08 14:14] VITALS: BP 138/77; PULSE 67; TEMP 36.3; O2SAT 97
--- NOTE | 2016-09-24 21:38 | DISCHARGE SUMMARY ---
HISTORY OF PRESENT ILLNESS: This is a 46-year-old male patient of Dr. Lopez's complaining of chronic right knee pain, long-standing, now progressively getting worse. The patient has failed conservative treatment and has elected to proceed with a right total knee arthroplasty. PAST MEDICAL HISTORY: Osteoarthritis, acid reflux, otherwise the patient is a healthy 46-year-old male. POSTOPERATIVE COURSE: The patient underwent a right total knee arthroplasty on 09/06/2016. He was followed closely with pain medications, physical therapy, medical consultation and DVT prophylaxis in the form of Xarelto. The patient did well postoperatively and was discharged home with home health on postoperative day #2. PHYSICAL EXAMINATION: On discharge, right knee - Silverlon dressing was clean, dry and intact. There was no redness or drainage. He had no calf tenderness and negative Homans sign. Neurologically and neurovascularly he is intact in his right lower extremity. DIAGNOSES: Status post right knee total knee arthroplasty with a history of osteoarthritis and acid reflux. PLAN: The patient was discharged home with home health services. He will continue Xarelto for DVT prophylaxis for 12 days postoperatively. He will continue his preadmission medications as well as pain medications. He will follow up with Dr. Lopez as scheduled, as an outpatient.
== END 2016-09-08 15:30 | disposition home or self-care (01) | DRG 470 ==
LOC: ENRESERVDT → ENRESERVTM → C.ACU 11:15 → C.3E 11:19
PROVIDERS: ADMIT Orthopaedic Surgery Sports Medicine; ATTEND Orthopaedic Surgery Sports Medicine
PROC: 0SRC0J9 Replacement of Right Knee Joint with Synthetic Substitute, Cemented, Open Approach (ICD-10-PCS; principal; 2016-09-06 13:00)
PROC: 0SPC04Z Removal of Internal Fixation Device from Right Knee Joint, Open Approach (ICD-10-PCS; principal; 2016-09-06 13:00)
DX: T84.89XA Other specified complication of internal orthopedic prosthetic devices, implants and grafts, initial encounter (principal); Y83.2 Surgical operation with anastomosis, bypass or graft as the cause of abnormal reaction of the patient, or of later complication, without mention of misadventure at the time of the procedure; Y79.2 Prosthetic and other implants, materials and accessory orthopedic devices associated with adverse incidents; M17.11 Unilateral primary osteoarthritis, right knee; M25.461 Effusion, right knee; M67.861 Other specified disorders of synovium, right knee; Z96.9 Presence of functional implant, unspecified; R94.4 Abnormal results of kidney function studies; J45.909 Unspecified asthma, uncomplicated; E66.9 Obesity, unspecified; Z68.39 Body mass index [BMI] 39.0-39.9, adult

== ENCOUNTER 2016-09-11 14:51 | Emergency (ER) | payer BC ==
[~2016-09-11] VITALS: Ht 193 cm; Wt 130.0 kg
[~2016-09-11 14:51] MED LIST changes: +ACET-1138 PO; -ACETAMINOPHEN 500 MG TAB PO SCH; -ATROPINE SULFATE 0.1 MG/ML 5ML SYR IV PRN; -BACITRACIN 50000 UNIT VIAL ONE; -BUPIVACAINE 0.5 % 5 MG/1 ML PF 10ML VIAL ONE; -CEFAZOLIN 3000 MG/65 ML D5W 65 ML IV SCH; +CLB200 PO; -CeleBREX 200 MG CAP PO SCH; -DEXAMETHASONE 4 MG TAB PO SCH; -EpHEDrine SULFATE INJ 50 MG/ML AMP IV PRN; -FAMOTIDINE 20 MG TAB PO SCH; -GABAPENTIN 300 MG CAP PO SCH; -HYDROmorphone INJ 2 MG/ML SYR/VIAL IV PRN; -LACTATED RINGER'S 1000ML 1,000 ML IV SCH; -METOCLOPRAMIDE HCL 10 MG TAB PO SCH; +ONDA8TAB6 PO; -ONDANSETRON INJ 2 MG/ML 2 ML VIAL IV PRN; -ORTHO JOINT ANESTHETIC ONE; +OXYSR10 PO; -PHENYLEPHRINE 100MCG/ML 5ML SYR IV PRN; -ROPIVACAINE 0.5% 5 MG/ML 30 ML VIAL ONE; -ROPIVACAINE 5MG/ML 30 ML 150 MG, BUPIVACAINE/EPINEPHR 0.5% MPF 30 ML, KETOROLAC TROMETH... INFIL SCH; +RXC5 PO; +XRL10 PO
[2016-09-11 14:58] VITALS: TEMP 36.8; Ht 193 cm; Wt 130.0 kg
[2016-09-11] MEDS ORDERED: MoRPHine SULFATE 4 MG/ML 1 ML CARP\\VIAL IV PRN (15:15)
[2016-09-11] MEDS ORDERED: ONDANSETRON INJ 2 MG/ML 2 ML VIAL IV STA (15:15)
[2016-09-11] MEDS ORDERED: MoRPHine SULFATE 4 MG/ML 1 ML CARP\\VIAL IV STA (15:15)
[2016-09-11] MEDS ORDERED: OXYC20TA50 PO (15:18)
[2016-09-11] MEDS ORDERED: RIVA1TAB4 PO (15:20)
[2016-09-11] MEDS ORDERED: DOCU100C31 PO (15:21)
[2016-09-11] MEDS ORDERED: OXYC1TAB3 PO (15:22)
[2016-09-11] MEDS ORDERED: ACET-1311 PO (15:23)
[2016-09-11 15:49] LABS: BASO % 0.2 %; BASO ABS # 0.02 K/uL (0-0.2); COMPLETE YES; EOS % 1.2 %; HEMATOCRIT 31.9 % (42-52); IG% 0.4 %; LYMPH % 21.2 %; LYMPH ABS # 2.46 K/uL (1.2-3.4); MEAN CELL VOLUME 88.1 fL (80-100); MEAN CORPUSCULAR HEMOGLOBIN 28.7 pg (25-34); MEAN CORPUSCULAR HGB CONC 32.6 g/dl (32-36); MEAN PLATELET VOLUME 9.7 fL (7.4-10.4); MONO % 8.1 %; NEUT % 68.9 %; PLATELET COUNT 314 K/uL (130-400); RED BLOOD COUNT 3.62 M/uL (4.7-6.1); WHITE BLOOD COUNT 11.63 K/uL (4.8-10.8)
[2016-09-11 16:07] LABS: BLOOD UREA NITROGEN 17 mg/dl (7-18); BUN/CREATININE RATIO 13.8 (10-20); C-REACTIVE PROTEIN 9.26 mg/dl (0-0.29); CARBON DIOXIDE 29 mmol/L (21-32); CHLORIDE 103 mmol/L (98-107); GLUCOSE 88 mg/dl (70-99); SODIUM 139 mmol/L (136-145)
--- NOTE | 2016-09-11 16:14 | DIAGNOSTIC IMAGING REPORT ---
ULTRASOUND VENOUS DOPPLER LWR EXT BILA CLINICAL HISTORY: BILATERAL LEG PAIN AND SWELLING COMPARISON STUDY: No previous studies for comparison. FINDINGS: Real-time and color flow Doppler imaging were performed. Flow was seen within the femoral, popliteal and calf veins with no intraluminal thrombus demonstrated. The saphenous vein is patent. IMPRESSION: No evidence of lower extremity DVT. Electronically signed by: Alex Stevens M.D. 09/11/2016 4:13 PM Dictated Date/Time: 09/11/2016 4:10 PM
[2016-09-11] MEDS ORDERED: HYDROmorphone INJ 1 MG/ML SYR IV STA (16:22)
--- NOTE | 2016-09-11 16:49 | DIAGNOSTIC IMAGING REPORT ---
HEAD CT NONCONTRAST CT DOSE: HISTORY: Headache HERNANDEZ TECHNIQUE: Multiaxial CT images of the head were performed without the use of intravenous contrast. Comparison: None. Findings: The paranasal sinuses and mastoid air cells are clear. The calvarium and skull base are intact. The ventricles and sulci are within normal limits. There is no mass, hematoma, midline shift, or acute infarct. Impression: No acute intracranial abnormality. Electronically signed by: Bhavin Faustin M.D. 09/11/2016 4:48 PM Dictated Date/Time: 09/11/2016 4:47 PM
--- NOTE | 2016-09-11 16:52 | DIAGNOSTIC IMAGING REPORT ---
CHEST CTA for PULMONARY ARTERIES CT DOSE: 1383.72 mGy.cm HISTORY: Chest pain dyspnea TECHNIQUE: Multiaxial CT images of the chest were performed following the intravenous administration of contrast to evaluate the pulmonary arteries. Maximal intensity projection images were also obtained. COMPARISON STUDY: None. FINDINGS: There is a normal caliber thoracic aorta with no evidence for dissection. There is no evidence for pulmonary embolus. No pleural effusions. No pneumothorax. The liver and spleen are unremarkable. No mediastinal or hilar lymphadenopathy. The central airways are patent. The lungs are clear. Very subtle interstitial prominence bilaterally IMPRESSION: No evidence for pulmonary embolus. Very subtle interstitial prominence bilaterally Electronically signed by: Bhavin Faustin M.D. 09/11/2016 4:50 PM Dictated Date/Time: 09/11/2016 4:48 PM
[2016-09-11] MEDS ORDERED: OPTIRAY 320 IV PRN (17:00)
[2016-09-11] MEDS ORDERED: HYDROmorphone INJ 0.5 MG/0.5 ML SYR IV STA (17:44)
[2016-09-11] MEDS ORDERED: ONDA8TAB13 SL (17:48)
[2016-09-11 18:20] VITALS: BP 141/78; PULSE 58; O2SAT 98
--- NOTE | 2016-09-11 20:15 | EMERGENCY ROOM VISIT NOTE ---
History First contact with patient: 15:05 Chief Complaint: LEG PAIN,LEG INJURY Stated Complaint: HERNANDEZ, SOB, NAUSEA, LEG PAIN History of Present Illness The patient is a 46 year old male who presents to the Emergency Room with complaints of headache, shortness of breath, chest pressure and bilateral lower extremity swelling/pain, right worse than left. The patient is 5 days status post primary right total knee arthroplasty, performed by Dr. Lopez. The patient reports that his symptoms started last evening, and has progressively worsened. He is currently on Xarelto. The patient denies any additional bruising. He denies any prior history of DVT, pulmonary embolus or other coagulopathies. The patient reports that he cannot catch his breath, and is also dreaming that he cannot catch his breath. He does report improving right knee pain, but now reports generalized right lower extremity pain. He does report chills, but has not checked his temperature at home. He rates his discomfort a 10 out of 10. He did call [facility], and was referred here for further evaluation. The patient reports that his pain is also poorly controlled, taking OxyContin 10 mg twice daily, and OxyIR 10 mg every 4 hours without any significant pain relief. Review of Systems HEENT: Denies dizziness, visual problems, hearing loss, tinnitus. Denies difficulty swallowing or oral lesions. PULMONARY: Denies cough, sputum production or hemoptysis. Otherwise see history of present illness. CARDIOVASCULAR: Denies palpitations, or orthopnea . The patient does report peripheral edema. GASTROINTESTINAL: Reports mild nausea. Denies diarrhea, constipation or abdominal pain. GENITOURINARY: Denies dysuria, frequency, urgency or nocturia. NEUROLOGIC: Denies history of epilepsy, CVA, TIA or chronic headaches. MUSCULOSKELETAL: Denies history of joint tenderness/swelling. SKIN: Denies rashes or lesions. PSYCHIATRIC: Denies history of depression or mental illness. ENDOCRINE: Denies history of diabetes or thyroid disorders. Past Medical/Surgical History Medical Problems: (1) ANXIETY STATE NOS (2) DIAPHRAGMATIC HERNIA (3) ESOPHAGEAL REFLUX (4) Right knee DJD Family History Unremarkable Social History Smoking Status: Never Smoker Alcohol Use: occasionally Marital Status: Occupation Status: employed Current/Historical Medications Scheduled Docusate Sodium (Docusate Sodium), 200 MG PO DAILY Ondansetron Odt (Zofran Odt), 8 MG SL Q6H Oxycodone Hcl (Oxycontin), 10 MG PO Q12 Rivaroxaban (Xarelto), 10 MG PO DAILY Scheduled PRN Acetaminophen (Tylenol), 650 MG PO Q4H PRN for Pain Oxycodone Ir (Roxicodone Ir), 1-2 TAB PO Q4H PRN for Severe Pain Allergies Coded Allergies: No Known Allergies (Verified , 09/06/16) Physical Exam Vital Signs Date Time Temp Pulse Resp B/P Pulse Ox O2 Delivery O2 Flow Rate FiO2 09/11/16 18:20 58 18 141/78 98 09/11/16 16:52 64 18 150/82 98 Room Air 09/11/16 14:58 36.8 76 20 147/76 99 Room Air Physical Exam CONSTITUTIONAL: Healthy and well nourished. Alert and oriented X 3 with positive affect. Patient appears in moderate discomfort from overall pain and nausea, holding an emesis bag. HEENT: Normocephalic, atraumatic. Pupils equal, round and reactive. No scleral icterus or conjunctival injection. No epistaxis, hemotympanum or subconjunctival hemorrhage. NECK: Full active range of motion without discomfort. No JVD or carotid bruits. RESPIRATORY: Clear to auscultation bilaterally with no wheezing, crackles, rhonchi or stridor. CARDIOVASCULAR: Irregular rhythm with no murmurs, rubs or gallops appreciated. GASTROINTESTINAL: Bowel sounds present in all quadrants. Soft and nontender to palpation. MUSCULOSKELETAL: Examination shows edema of the right lower extremity. The knee itself does not have any overriding erythema or significant increased warmth to palpation. The patient did have a dressing in place, and the dressing was not removed on initial exam. Pedal pulses are intact. Negative logroll bilaterally. INTEGUMENTARY: No rash or other significant dermatologic conditions noted. NEUROLOGIC: No focal neurologic deficits noted. Right foot and toes are sensory intact. Medical Decision & Procedures ER Provider Diagnostic Interpretation: My interpretation of an ECG shows a normal sinus rhythm of [address] elevation or other conduction abnormalities. Venous ultrasound of bilateral lower extremities does not show any evidence for DVT. Radiologist report is as follows: ULTRASOUND VENOUS DOPPLER LWR EXT BILA CLINICAL HISTORY: BILATERAL LEG PAIN AND SWELLING COMPARISON STUDY: No previous studies for comparison. FINDINGS: Real-time and color flow Doppler imaging were performed. Flow was seen within the femoral, popliteal and calf veins with no intraluminal thrombus demonstrated. The saphenous vein is patent. IMPRESSION: No evidence of lower extremity DVT. Noncontrast CT of the head does not show any evidence for intracranial bleed, midline shift or mass effect. Radiologist report is as follows: HEAD CT NONCONTRAST CT DOSE: HISTORY: Headache HERNANDEZ TECHNIQUE: Multiaxial CT images of the head were performed without the use of intravenous contrast. Comparison: None. Findings: The paranasal sinuses and mastoid air cells are clear. The calvarium and skull base are intact. The ventricles and sulci are within normal limits. There is no mass, hematoma, midline shift, or acute infarct. Impression: No acute intracranial abnormality. Chest CT angiography does not show any evidence for pulmonary embolus, pneumothorax or other acute findings. Radiologist report is as follows: CHEST CTA for PULMONARY ARTERIES CT DOSE: 1383.72 mGy.cm HISTORY: Chest pain dyspnea TECHNIQUE: Multiaxial CT images of the chest were performed following the intravenous administration of contrast to evaluate the pulmonary arteries. Maximal intensity projection images were also obtained. COMPARISON STUDY: None. FINDINGS: There is a normal caliber thoracic aorta with no evidence for dissection. There is no evidence for pulmonary embolus. No pleural effusions. No pneumothorax. The liver and spleen are unremarkable. No mediastinal or hilar lymphadenopathy. The central airways are patent. The lungs are clear. Very subtle interstitial prominence bilaterally IMPRESSION: No evidence for pulmonary embolus. Very subtle interstitial prominence bilaterally Laboratory Results 09/11/16 15:25 Red Blood Count 3.62, Mean Corpuscular Volume 88.1, Mean Corpuscular Hemoglobin 28.7, Mean Corpuscular Hemoglobin Concent 32.6, Mean Platelet Volume 9.7, Neutrophils (%) (Auto) 68.9, Lymphocytes (%) (Auto) 21.2, Monocytes (%) (Auto) 8.1, Eosinophils (%) (Auto) 1.2, Basophils (%) (Auto) 0.2, Neutrophils # (Auto) 8.02, Lymphocytes # (Auto) 2.46, Monocytes # (Auto) 0.94, Eosinophils # (Auto) 0.14, Basophils # (Auto) 0.02 09/11/16 15:25 Test 09/11/16 15:25 09/11/16 15:30 White Blood Count 11.63 K/uL (4.8-10.8) Red Blood Count 3.62 M/uL (4.7-6.1) Hemoglobin 10.4 g/dL (14.0-18.0) Hematocrit 31.9 % (42-52) Mean Corpuscular Volume 88.1 fL (80-100) Mean Corpuscular Hemoglobin 28.7 pg (25-34) Mean Corpuscular Hemoglobin Concent 32.6 g/dl (32-36) Platelet Count 314 K/uL (130-400) Mean Platelet Volume 9.7 fL (7.4-10.4) Neutrophils (%) (Auto) 68.9 % Lymphocytes (%) (Auto) 21.2 % Monocytes (%) (Auto) 8.1 % Eosinophils (%) (Auto) 1.2 % Basophils (%) (Auto) 0.2 % Neutrophils # (Auto) 8.02 K/uL (1.4-6.5) Lymphocytes # (Auto) 2.46 K/uL (1.2-3.4) Monocytes # (Auto) 0.94 K/uL (0.11-0.59) Eosinophils # (Auto) 0.14 K/uL (0-0.5) Basophils # (Auto) 0.02 K/uL (0-0.2) RDW Standard Deviation 43.5 fL (36.4-46.3) RDW Coefficient of Variation 13.4 % (11.5-14.5) Immature Granulocyte % (Auto) 0.4 % Immature Granulocyte # (Auto) 0.05 K/uL (0.00-0.02) Erythrocyte Sedimentation Rate 40 mm/hr (0-14) Anion Gap 7.0 mmol/L (3-11) Est Creatinine Clear Calc Drug Dose 112.0 ml/min Estimated GFR () 83.0 Estimated GFR (Non- 71.6 BUN/Creatinine Ratio 13.8 (10-20) Calcium Level 9.0 mg/dl (8.5-10.1) Troponin I < 0.015 ng/ml (0-0.045) C-Reactive Protein 9.26 mg/dl (0-0.29) Lactic Acid Level 0.8 mmol/L (0.4-2.0) The above labs were reviewed. The patient has a mild leukocytosis with elevated C-reactive protein and sedimentation rate, likely from his most recent surgery. Lactic acid is normal. Blood cultures 2 were ordered and are pending. Troponin was also normal. Medications Administered Medications (Trade) Dose Ordered Sig/Reji Route Start Time Stop Time Status Last Admin Dose Admin Morphine Sulfate (MoRPHine SULFATE INJ) 4 mg NOW STAT IV 09/11/16 15:15 09/11/16 15:22 DC 09/11/16 15:31 4 MG Ondansetron HCl (Zofran Inj) 4 mg NOW STAT IV 09/11/16 15:15 09/11/16 15:22 DC 09/11/16 15:31 4 MG Hydromorphone HCl (Dilaudid Inj) 1 mg NOW STAT IV 09/11/16 16:22 09/11/16 16:23 DC 09/11/16 16:29 1 MG Hydromorphone HCl (Dilaudid Inj) 0.5 mg NOW STAT IV 09/11/16 17:44 09/11/16 17:46 DC 09/11/16 18:20 0.5 MG Procedure IV medications: The patient was initially administered morphine 4 mg and Zofran 4 mg IVP. Prior to going to CT, he requested something stronger for pain, reporting that the morphine did not last for a long period he was administered Dilaudid 1 mg and additional Zofran 4 mg IVP for mild nausea. The patient did require an additional Dilaudid 0.5 mg IVP prior to discharge. ED Course Patient history and physical exam were performed. Nurse's notes were reviewed. Vital signs were reviewed and normal. The patient is normotensive, afebrile and not tachycardic. O2 saturation is 99% on room air. 18-gauge IV access was established, and labs were drawn. The patient was administered IV morphine and Zofran as discussed in the previous Procedure section. Review of labs shows a mild leukocytosis with an elevated sedimentation rate and CRP. This is likely reactive from the patient's most recent surgery. Troponin was normal, along with a normal ECG. Noncontrast CT of the head, chest CT angiography and bilateral lower extremity venous Dopplers were all normal. The patient did require additional IV Dilaudid and Zofran prior to his CT studies because of rebound pain and nausea. He was also administered an additional IV Dilaudid prior to discharge. The case was also discussed with Dr. Marquez, ED attending physician, who agrees with workup and plan of care. The patient was requesting additional medication as needed for pain. The patient was advised that he could of his OxyContin dose to 20 mg twice daily, and continue with his OxyIR 5 mg as prescribed by Dr. Lopez for breakthrough pain. He was instructed to contact his orthopedic surgeon's office tomorrow to discuss further pain management options. The patient was happy with plan of care, voice understanding of all discharge instructions, and rated his pain a 3 out of 10 at the time of discharge. The patient was provided a prescription for Zofran 8 mg ODT to prevent nausea. He was also dispensed knee-high QUINN hoses as he did not get any prior to discharge from after his surgery. Medical Decision Patient presents with multiple symptoms after undergoing knee replacement 5 days ago. Although the patient is on Xarelto, I was concern for his bilateral lower extremity swelling, shortness of breath, chest discomfort and headache. CT images are normal, and the patient does not have any concerning laboratory studies to suggest sepsis. His examination is not suggestive of postoperative joint infection. Blood cultures are pending, however the patient has a normal lactic acid level. Impression Primary Impression: Shortness of breath Additional Impressions: Headache Bilateral lower extremity edema Status post total right knee replacement Departure Information Prescriptions Ondansetron Odt (ZOFRAN ODT) 8 Mg Tab 8 MG SL Q6H for nausea, #20 TAB Prov: Herman Boateng PA 09/11/16 Referrals Tristan Isidro M.D. (PCP) Patient Instructions My [facility] Problem Qualifiers Additional Impressions: Headache Headache type: unspecified Headache chronicity pattern: acute headache Intractability: not intractable Qualified Codes: R51 - Headache
== END 2016-09-11 18:22 | disposition home or self-care (01) ==
LOC: C.EDB 14:53
DX: R51 Headache (principal); R06.02 Shortness of breath; R60.0 Localized edema; Z96.652 Presence of left artificial knee joint; R11.0 Nausea; F41.9 Anxiety disorder, unspecified; K21.9 Gastro-esophageal reflux disease without esophagitis; Z79.899 Other long term (current) drug therapy

== ENCOUNTER → 2017-01-04 | Outpatient (CLI) | payer BC ==
[~2017-01-04] MED LIST changes: -ACET-1138 PO; +ACET-1311 PO; -CLB200 PO; +DOCU100C31 PO; -ONDA8TAB6 PO; +OXYC1TAB3 PO; +OXYC20TA50 PO; -OXYSR10 PO; +RIVA1TAB4 PO; -RXC5 PO; -XRL10 PO
--- NOTE | 2017-01-04 08:35 | DIAGNOSTIC IMAGING REPORT ---
MRI LUMBAR SPINE W/O CONTRAST CLINICAL HISTORY: Low back pain with lumbar radiculopathy. TECHNIQUE: Sagittal and axial T1, T2 and STIR images were obtained. COMPARISON STUDY: No previous studies for comparison. OBSERVATIONS: The vertebral bodies and posterior elements appear intact. There is no abnormal bony signal present to suggest a marrow replacement process. L1-2: There is a tiny right paracentral disc protrusion. There is no significant spinal or foraminal stenosis L2-3: No disc protrusions or extrusions. No evidence of spinal canal or neural foraminal compromise. L3-4: There is a mild circumferential disc bulge. There is no significant spinal or foraminal stenosis L4-5: There is a tiny central disc protrusion and minor circumferential disc bulge. There is facet joint arthropathy. There is no significant spinal or foraminal stenosis L5-S1: There is a minor circumferential disc bulge. There is facet joint arthropathy most pronounced on the left. There is minor left-sided foraminal narrowing. The conus medullaris and cauda equina appear normal. IMPRESSION: Multilevel spondylitic changes with multilevel disc bulges and a tiny right paracentral disc protrusion at the L1-2 level, and a tiny central disc protrusion at the L4-5 level.. Lower lumbar facet joint arthropathy. No significant spinal stenosis. Minor left-sided foraminal narrowing at the L5-S1 level. Electronically signed by: Alex Stevens M.D. 01/04/2017 8:34 AM Dictated Date/Time: 01/04/2017 8:26 AM
== END | disposition home or self-care (01) ==
LOC: C.MRIBC 07:43
PROVIDERS: ATTEND Pain Medicine Interventional Pain Medicine
DX: M47.26 Other spondylosis with radiculopathy, lumbar region (principal)

== ENCOUNTER → 2017-04-23 | Outpatient (CLI) | payer BC ==
--- NOTE | 2017-04-23 09:21 | DIAGNOSTIC IMAGING REPORT ---
L HAND MIN 3 VIEWS ROUTINE, R HAND MIN 3 VIEWS ROUTINE HISTORY: 46 years-old Male M79.641 Bilateral hand [id number] acute bilateral hand pain COMPARISON: None available TECHNIQUE: 3 views of the bilateral hands for a total of 6 images FINDINGS: LEFT: Mild triscaphe and first carpometacarpal osteoarthritis. A few subcortical cysts are noted within the second third metacarpal heads. No acute fracture or dislocation. No opaque foreign body. RIGHT: Mild first carpal metacarpal and triscaphe osteoarthritis. There is mild flattening of the third metatarsal head which may reflect sequela of remote trauma. Subcortical cysts are noted within the second third metacarpal heads. No acute fracture, dislocation or opaque foreign body. IMPRESSION: Mild degenerative changes of the bilateral hands without acute fracture or dislocation. The above report was generated using voice recognition software. It may contain grammatical, syntax or spelling errors. Electronically signed by: Wilber Lima M.D. 04/23/2017 9:20 AM Dictated Date/Time: 04/23/2017 9:18 AM
--- NOTE | 2017-04-23 09:21 | DIAGNOSTIC IMAGING REPORT ---
L HAND MIN 3 VIEWS ROUTINE, R HAND MIN 3 VIEWS ROUTINE HISTORY: 46 years-old Male M79.641 Bilateral hand [id number] acute bilateral hand pain COMPARISON: None available TECHNIQUE: 3 views of the bilateral hands for a total of 6 images FINDINGS: LEFT: Mild triscaphe and first carpometacarpal osteoarthritis. A few subcortical cysts are noted within the second third metacarpal heads. No acute fracture or dislocation. No opaque foreign body. RIGHT: Mild first carpal metacarpal and triscaphe osteoarthritis. There is mild flattening of the third metatarsal head which may reflect sequela of remote trauma. Subcortical cysts are noted within the second third metacarpal heads. No acute fracture, dislocation or opaque foreign body. IMPRESSION: Mild degenerative changes of the bilateral hands without acute fracture or dislocation. The above report was generated using voice recognition software. It may contain grammatical, syntax or spelling errors. Electronically signed by: Wilber Lima M.D. 04/23/2017 9:20 AM Dictated Date/Time: 04/23/2017 9:18 AM
--- NOTE | 2017-04-23 09:23 | DIAGNOSTIC IMAGING REPORT ---
SI JOINTS 3 OR MORE VIEWS HISTORY: 46 years-old Male M79.641 Bilateral hand [id number] COMPARISON: Lumbar spine MR 01/04/2017 TECHNIQUE: 4 views of the SI joints FINDINGS: Mild subchondral sclerosis of the bilateral SI joints without erosive changes to suggest sacroiliitis. Mild intervertebral disc space narrowing seen at L4-L5 and L5-S1. No acute fracture or subluxation. IMPRESSION: 1. No acute fracture or subluxation. 2. No erosive changes to suggest sacroiliitis. The above report was generated using voice recognition software. It may contain grammatical, syntax or spelling errors. Electronically signed by: Wilber Lima M.D. 04/23/2017 9:21 AM Dictated Date/Time: 04/23/2017 9:20 AM
[2017-04-23 10:07] LABS: C-REACTIVE PROTEIN 0.58 mg/dl (0-0.29); RHEUMATOID FACTOR < 10.0 U/mL (0-15); TOTAL IRON BINDING CAPACITY 349 mcg/dl (250-450)
== END | disposition home or self-care (01) ==
LOC: C.RAD1850 08:44
PROVIDERS: ATTEND Internal Medicine Rheumatology
DX: M79.641 Pain in right hand (principal); M79.642 Pain in left hand; M89.8X4 Other specified disorders of bone, hand

== ENCOUNTER → 2017-05-09 | Outpatient (CLI) | payer BC ==
[~2017-05-09] MED LIST changes: +OXYC-90 PO; -OXYC1TAB3 PO
--- NOTE | 2017-05-09 17:40 | DIAGNOSTIC IMAGING REPORT ---
SI JOINTS WITHOUT HISTORY: 46 years-old Male BILATERAL HAND PAIN acute bilateral hand pain with groin and hip pain. Concern for possible sacroiliitis. COMPARISON: Radiographs of the SI joints 04/23/2017 TECHNIQUE: Multiplanar multisequence MRI of the SI joints was obtained without the use of IV contrast FINDINGS: There is no focal bone marrow edema, erosive change, fracture or significant joint space narrowing identified involving the SI joints. Moderate intervertebral disc space narrowing and endplate spurring involves the L4-L5 and L5-S1 disc spaces with broad-based posterior disc bulging seen at L4-L5. Small facet effusion noted on the left at L4-L5. No focal soft tissue edema identified. Course of the bilateral sciatic nerves appear to be within normal limits. No acute intrapelvic abnormality identified. IMPRESSION: 1. No focal bone marrow edema, fracture, significant joint space narrowing or erosive changes of the SI joints. No evidence of sacroiliitis. 2. Degenerative changes of the lower lumbar spine at L4-L5 and L5-S1 as above. The above report was generated using voice recognition software. It may contain grammatical, syntax or spelling errors. Electronically signed by: Wilber Lima M.D. 05/09/2017 5:39 PM Dictated Date/Time: 05/09/2017 5:34 PM
== END | disposition home or self-care (01) ==
LOC: C.MRIBC 16:16
PROVIDERS: ATTEND Internal Medicine Rheumatology
DX: M46.1 Sacroiliitis, not elsewhere classified (principal); M79.641 Pain in right hand; M79.642 Pain in left hand; M51.37 Other intervertebral disc degeneration, lumbosacral region

== ENCOUNTER → 2017-07-10 | Outpatient (CLI) | payer BC ==
[~2017-07-10] MED LIST changes: -OXYC-90 PO; +OXYC1TAB3 PO
[2017-07-10 14:50] LABS: BASO % 0.7 %; BASO ABS # 0.06 K/uL (0-0.2); EOS % 1.1 %; HEMATOCRIT 44.5 % (42-52); HEMOGLOBIN 14.7 g/dL (14.0-18.0); IG# 0.03 K/uL (0.00-0.02); LYMPH % 27.7 %; LYMPH ABS # 2.45 K/uL (1.2-3.4); MEAN CELL VOLUME 85.9 fL (80-100); MEAN CORPUSCULAR HEMOGLOBIN 28.4 pg (25-34); MONO % 8.1 %; MONO ABS # 0.72 K/uL (0.11-0.59); NEUT % 62.1 %; NEUT ABS # 5.49 K/uL (1.4-6.5); PLATELET COUNT 205 K/uL (130-400); RED CELL DISTRIBUTION WIDTH CV 13.8 % (11.5-14.5); WHITE BLOOD COUNT 8.85 K/uL (4.8-10.8)
[2017-07-10 15:21] LABS: ALBUMIN 3.7 gm/dl (3.4-5.0); ALT/SGPT 35 U/L (12-78); CREATININE 1.25 mg/dl (0.60-1.40)
[2017-07-10 15:24] LABS: ALKALINE PHOSPHATASE 78 U/L (45-117); AST/SGOT 17 U/L (15-37); TOTAL PROTEIN 7.2 gm/dl (6.4-8.2)
== END | disposition home or self-care (01) ==
LOC: C.LAB1850 13:51
PROVIDERS: ATTEND Internal Medicine Rheumatology
DX: M19.041 Primary osteoarthritis, right hand (principal); M19.042 Primary osteoarthritis, left hand; L40.50 Arthropathic psoriasis, unspecified

== ENCOUNTER → 2017-12-27 | Outpatient (CLI) | payer BC ==
[~2017-12-27] MED LIST changes: +OXYC-90 PO; -OXYC1TAB3 PO
[2017-12-27 12:09] LABS: BASO % 0.1 %; BASO ABS # 0.01 K/uL (0-0.2); HEMATOCRIT 43.8 % (42-52); HEMOGLOBIN 14.3 g/dL (14.0-18.0); IG# 0.09 K/uL (0.00-0.02); LYMPH % 12.1 %; LYMPH ABS # 2.23 K/uL (1.2-3.4); MEAN CELL VOLUME 90.3 fL (80-100); MEAN CORPUSCULAR HEMOGLOBIN 29.5 pg (25-34); MEAN CORPUSCULAR HGB CONC 32.6 g/dl (32-36); MEAN PLATELET VOLUME 10.9 fL (7.4-10.4); MONO ABS # 1.47 K/uL (0.11-0.59); NEUT % 79.3 %; PLATELET COUNT 287 K/uL (130-400); RED CELL DISTRIBUTION WIDTH CV 14.5 % (11.5-14.5); RED CELL DISTRIBUTION WIDTH SD 47.1 fL (36.4-46.3)
[2017-12-27 12:45] LABS: CREATININE 1.28 mg/dl (0.60-1.40)
[2017-12-27 12:46] LABS: ALKALINE PHOSPHATASE 78 U/L (45-117); ALT/SGPT 43 U/L (12-78); AST/SGOT 16 U/L (15-37); TOTAL PROTEIN 7.9 gm/dl (6.4-8.2)
== END | disposition home or self-care (01) ==
LOC: C.LAB1850 10:32
PROVIDERS: ATTEND Internal Medicine Rheumatology
DX: K21.9 Gastro-esophageal reflux disease without esophagitis (principal); M25.50 Pain in unspecified joint; L40.50 Arthropathic psoriasis, unspecified; Z79.899 Other long term (current) drug therapy